=== PATIENT | male | born 1955 | race African-American/Black ===

== ENCOUNTER 2017-12-14 09:38 | Inpatient (IN) | payer BC ==
[2017-12-14] VITALS (7 sets, daily range): BP systolic 131–167; BP diastolic 85–98; PULSE 79–138; RESP 17–21; TEMP 98.5–98.6; O2SAT 98–100
[~2017-12-14] VITALS: Ht 172.7 cm; Wt 90.9 kg
[~2017-12-14 09:38] MED LIST: MEVA40TA PO; TAMS0.4C67 PO
[2017-12-14] MEDS ORDERED: SODIUM CHLORIDE 0.9% FLUSH 10 ML FLUSH IVF PRN (09:45)
[2017-12-14] MEDS ORDERED: LOVA40TA PO (09:58)
[2017-12-14] MEDS ORDERED: TAMS0.4C4 (09:58)
[2017-12-14] MEDS: METOPROLOL TARTRATE 5 MG/5 ML VIAL IV PUSH SCH ×3 (10:05→10:19)
[2017-12-14 10:19] LABS: AUTOMATED NEUTROPHIL # 3.7 TH/MM3 (1.8-7.7); BASOPHIL % 0.2 % (0.0-2.0); EOSINOPHIL # 0.1 TH/MM3 (0-0.4); EOSINOPHIL % 1.5 % (0.0-4.0); HEMATOCRIT 42.9 % (39.0-51.0); LYMPH % 28.2 % (9.0-44.0); LYMPHOCYTE # 1.6 TH/MM3 (1.0-4.8); MEAN CELL VOLUME 84.8 FL (80.0-100.0); MEAN CORPUSCULAR HEMOGLOBIN 27.6 PG (27.0-34.0); MEAN CORPUSCULAR HGB CONC 32.6 % (32.0-36.0); MONO % 6.7 % (0.0-8.0); MONOCYTE # 0.4 TH/MM3 (0-0.9); NEUT % 63.4 % (16.0-70.0); PLATELET COUNT 186 TH/MM3 (150-450); RED BLOOD COUNT 5.05 MIL/MM3 (4.50-5.90); RED CELL DISTRIBUTION WIDTH 14.3 % (11.6-17.2); WHITE BLOOD COUNT 5.8 TH/MM3 (4.0-11.0)
[2017-12-14 10:26] LABS: PROTHROMBIN TIME - PATIENT 10.5 SEC (9.8-11.6)
[2017-12-14 10:41] LABS: BLOOD UREA NITROGEN 18 MG/DL (7-18); CALCIUM 8.9 MG/DL (8.5-10.1); CHLORIDE 109 MEQ/L (98-107); CREATININE 1.22 MG/DL (0.60-1.30); GLOMERULAR FILTRATION RATE 73 ML/MIN (>89); GLUCOSE,RANDOM 82 MG/DL (74-106); MAGNESIUM 2.2 MG/DL (1.5-2.5); SODIUM (NA) 144 MEQ/L (136-145)
[2017-12-14 10:45] LABS: TROPONIN I LESS THAN 0.02 NG/ML (0.02-0.05)
--- NOTE | 2017-12-14 10:45 | RADRPT ---
EXAM DATE/TIME: 12/14/2017 10:09 [place] COMPARISON: CHEST SINGLE AP, May 31, 2012, 13:46. INDICATIONS : Tachycardia. Dizziness. MEDICAL HISTORY : None. SURGICAL HISTORY : None. ENCOUNTER: Initial ACUITY: 1 day PAIN SCORE: 0/10 LOCATION: Bilateral chest FINDINGS: A single view of the chest demonstrates the lungs to be symmetrically aerated without evidence of mas s, infiltrate or effusion. The cardiomediastinal contours are unremarkable. Osseous structures are intact. CONCLUSION: No acute disease. Rob Figueroa MD on December 14, 2017 at 10:43 Board Certified Radiologist. This report was verified electronically.
--- NOTE | 2017-12-14 11:34 | PD ---
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 He was evaluated on scene and found to have a heart rate in the 200s. EMS reports SVT and gave the patient adenosine 6 mg with reduction in heart rate followed by a second 12 mg dose. The patient's heart rate again decreased temporarily and was found to be A. fib RVR. He received 20 mg diltiazem. Upon arrival to the ER the rhythm again was observed to be in atrial fibrillation with a rate between 140 and 160. Blood pressure remained about 140/100. The patient reports 4 years ago having one episode of A. fib. Nuclear medicine stress test was performed which was normal. He denies any change in his baseline health recently. No chest pain. PFSH Past Medical History Atrial Fibrillation: Yes High Cholesterol: Yes Diabetes: Yes (BORDERLINE- NO MEDS) Patient Takes Glucophage: No Diminished Hearing: No Past Surgical History Eye Surgery: Yes (LEFT CATARACT REMOVED) Genitourinary Surgery: Yes (CYSTOSCOPY) Other Surgery: Yes (COLONOSCOPY-ALL CLEAN) Social History Alcohol Use: Yes (OCCASSIONAL) Tobacco Use: No Substance Use: No Allergies-Medications (Allergen,Severity, Reaction): Coded Allergies: shellfish derived (Unverified Allergy, Severe, ANAPHYLAXIS, 12/14/17) Reported Meds & Prescriptions Reported Meds & Active Scripts Active Reported Tamsulosin (Tamsulosin HCl) 0.4 Mg Cap 0.4 Mg HS Lovastatin 40 Mg Tab 40 Mg PO DAILY Review of Systems Except as stated in HPI: all other systems reviewed are Neg General / Constitutional: No: Fever Physical Exam Narrative GENERAL: 62 male well-nourished well-developed pleasant Vital Signs Date Time Temp Pulse Resp B/P (MAP) Pulse Ox O2 Delivery O2 Flow Rate FiO2 12/14/17 10:25 79 21 138/85 (102) 100 Room Air 12/14/17 09:55 98.6 138 20 131/87 (102) 99 SKIN: Warm and dry. HEAD: Atraumatic. Normocephalic. EYES: Pupils equal and round. No scleral icterus. No injection or drainage. ENT: No nasal bleeding or discharge. Mucous membranes pink and moist. NECK: Trachea midline. No JVD. CARDIOVASCULAR: Irregular. Tachycardia. RESPIRATORY: No accessory muscle use. Clear to auscultation. Breath sounds equal bilaterally. GASTROINTESTINAL: Abdomen soft, non-tender, nondistended. Hepatic and splenic margins not palpable. MUSCULOSKELETAL: Extremities without clubbing, cyanosis, or edema. No obvious deformities. NEUROLOGICAL: Awake and alert. No obvious cranial nerve deficits. Motor grossly within normal limits. Five out of 5 muscle strength in the arms and legs. Normal speech. PSYCHIATRIC: Appropriate mood and affect; insight and judgment normal. Data Data Last Documented VS Vital Signs Date Time Temp Pulse Resp B/P (MAP) Pulse Ox O2 Delivery O2 Flow Rate FiO2 12/14/17 10:25 79 21 138/85 (102) 100 Room Air 12/14/17 09:55 98.6 Orders Orders Electrocardiogram (12/14/17 09:45) Basic Metabolic Panel (Bmp) (12/14/17 09:45) Ckmb (Isoenzyme) Profile (12/14/17 09:45) Complete Blood Count With Diff (12/14/17 09:45) Magnesium (Mg) (12/14/17 09:45) Prothrombin Time / Inr (Pt) (12/14/17 09:45) Act Partial Throm Time (Ptt) (12/14/17 09:45) Troponin I (12/14/17 09:45) Chest, Single Ap (12/14/17 09:45) Ecg Monitoring (12/14/17 09:45) Iv Access Insert/Monitor (12/14/17 09:45) Oximetry (12/14/17 09:45) Oxygen Administration (12/14/17 09:45) Sodium Chloride 0.9% Flush (Ns Flush) (12/14/17 09:45) Metoprolol Tartrate Inj (Lopressor Inj) (12/14/17 10:00) CKMB (12/14/17 10:01) CKMB% (12/14/17 10:01) Electrocardiogram (12/14/17 ) Potassium Chloride (Kcl) (12/14/17 13:45) Admit Order (Ed Use Only) (12/14/17 ) Motor Carrier Inspector / Telemetry NIKOS.Q8H (12/14/17 13:35) Vital Signs (Adult) Q4H (12/14/17 13:35) Diet Heart Healthy (12/14/17 Lunch) Activity Bed Rest (12/14/17 13:35) Potassium Chloride (Kcl) (12/14/17 13:45) Labs Laboratory Tests Test 12/14/17 10:01 White Blood Count 5.8 TH/MM3 Red Blood Count 5.05 MIL/MM3 Hemoglobin 14.0 GM/DL Hematocrit 42.9 % Mean Corpuscular Volume 84.8 FL Mean Corpuscular Hemoglobin 27.6 PG Mean Corpuscular Hemoglobin Concent 32.6 % Red Cell Distribution Width 14.3 % Platelet Count 186 TH/MM3 Mean Platelet Volume 9.0 FL Neutrophils (%) (Auto) 63.4 % Lymphocytes (%) (Auto) 28.2 % Monocytes (%) (Auto) 6.7 % Eosinophils (%) (Auto) 1.5 % Basophils (%) (Auto) 0.2 % Neutrophils # (Auto) 3.7 TH/MM3 Lymphocytes # (Auto) 1.6 TH/MM3 Monocytes # (Auto) 0.4 TH/MM3 Eosinophils # (Auto) 0.1 TH/MM3 Basophils # (Auto) 0.0 TH/MM3 CBC Comment DIFF FINAL Differential Comment Prothrombin Time 10.5 SEC Prothromb Time International Ratio 1.0 RATIO Activated Partial Thromboplast Time 28.2 SEC Blood Urea Nitrogen 18 MG/DL Creatinine 1.22 MG/DL Random Glucose 82 MG/DL Calcium Level 8.9 MG/DL Magnesium Level 2.2 MG/DL Sodium Level 144 MEQ/L Potassium Level 3.3 MEQ/L Chloride Level 109 MEQ/L Carbon Dioxide Level 21.0 MEQ/L Anion Gap 14 MEQ/L Estimat Glomerular Filtration Rate 73 ML/MIN Total Creatine Kinase 684 U/L Creatine Kinase MB 7.4 NG/ML Creatine Kinase MB % 1.1 % Troponin I LESS THAN 0.02 NG/ML MDM Medical Decision Making Medical Screen Exam Complete: Yes Emergency Medical Condition: Yes Medical Record Reviewed: Yes Differential Diagnosis NSTEMI, unstable angina, coronary vasospasm, PE, PTX, aortic dissection, pericarditis, myocarditis, endocarditis, PNA, esophageal disease, aneurysm, musculoskeletal etiologies, anxiety, cocaine/sympathomimetic abuse Narrative Course CBC & BMP Diagram 12/14/17 10:01 Calcium Level 8.9, Magnesium Level 2.2 Troponin less than 0.02 EKG: Narrow complex irregular tachycardia with a rate of 150 atrial flutter with a rate of 150 Patient received 5 mg IV metoprolol here. The heart rate has remained about 90 seconds. Patient will be kept for monitoring and further evaluation in the setting of for antiarrhythmic medication administrations. d/w Dr Ndiaye. 40mEq potassium given here. Diagnosis Primary Impression: Atrial fibrillation with RVR Additional Impression: Hypokalemia Admitting Information Admitting Physician Requests: Admit Austen Musa MD Dec 14, 2017 11:34
[2017-12-14] MEDS ORDERED: SODIUM CHLORIDE 0.9% FLUSH 10 ML FLUSH IV FLUSH PRN (13:45)
[2017-12-14] MEDS ORDERED: POTASSIUM CHLORIDE 20 MEQ CONTROLLED RELEASE TAB PO ONE ×2 (13:45)
[2017-12-14] MEDS ORDERED: NALOXONE HCL 0.4 MG/ML AMP IV PUSH PRN (13:45)
--- NOTE | 2017-12-14 13:47 | HHI.HP ---
[facility] Service [facility] ([place], [place])ists Primary Care Physician Cruz Anderson MD Admission Diagnosis AFib RVR; HypoK Diagnoses: Travel History International Travel<30 Days: No Contact w/Intl Traveler <30 Da: No Traveled to Known Affected Are: No History of Present Illness Mr. Sal is a 62-year-old male. He has a prior history of A. fib RVR which spontaneously resolved. 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 This is the same place at his previous episode occurred. He denies any herbal supplements. He denies any stimulants such as [id number] cough medicines or allergy/ sinus treatments. She denies high amounts of coffee. He said he about half a cup of coffee this morning which is not outside of his typical ingestion. He does not drink alcohol heavily, only occasionally. He had about 2 drinks of alcohol the previous day. No complaints of chest pain. No shortness of breath. Adenosine and IV diltiazem failed. After IV metoprolol was given in the ER patient is in normal sinus rhythm. She has remained in sinus rhythm since receiving metoprolol. Mild hypokalemia present and probably not contributory at 3.3. Review of Systems Constitutional: COMPLAINS OF: Dizziness, DENIES: Fatigue, Fever, Night Sweats Eyes: DENIES: Blurred vision, Diplopia, Eye inflammation, Eye pain Ears, nose, mouth, throat: DENIES: Hearing loss, Vertigo, Nasal discharge Respiratory: DENIES: Cough, Wheezing, Shortness of breath Cardiovascular: COMPLAINS OF: Palpitations, Syncope, DENIES: Chest pain Gastrointestinal: DENIES: Abdominal pain, Black stools, Bloody stools Musculoskeletal: DENIES: Joint pain, Muscle aches, Stiffness, Joint Swelling Integumentary: DENIES: Abnormal pigmentation, Nail changes, Pruritus, Rash Hematologic/lymphatic: DENIES: Bruising, Lymphadenopathy Immunologic/allergic: DENIES: Eczema, Urticaria Neurologic: DENIES: Abnormal gait, Headache, Paresthesias Psychiatric: DENIES: Anxiety, Confusion, Hallucinations Past Family Social History Past Medical History Past history of atrial fibrillation Hyperlipidemia Diet-controlled diabetes Benign prostatic hypertrophy Past Surgical History Left cataract surgery Cystoscopy Colonoscopy Reported Medications Reported Meds & Active Scripts Active Reported Tamsulosin (Tamsulosin HCl) 0.4 Mg Cap 0.4 Mg HS Lovastatin 40 Mg Tab 40 Mg PO DAILY Allergies: Coded Allergies: shellfish derived (Unverified Allergy, Severe, ANAPHYLAXIS, 12/14/17) Active Ordered Medications Administered Medications Medications (Trade) Dose Ordered Sig/Linden Route PRN Reason Start Time Stop Time Status Last Admin Dose Admin Metoprolol Tartrate (Lopressor Inj) 5 mg Q5M IV PUSH 12/14/17 10:00 12/14/17 10:19 Family History Prostate cancer and hypertension in patient's father Hypertension in patient's mother Social History Occasional alcohol use No nicotine use No illicit drug abuse Physical Exam Vital Signs Vital Signs Date Time Temp Pulse Resp B/P (MAP) Pulse Ox O2 Delivery O2 Flow Rate FiO2 12/14/17 10:25 79 21 138/85 (102) 100 Room Air 12/14/17 09:55 98.6 138 20 131/87 (102) 99 Physical Exam GENERAL: NAD, A&Ox3 HEAD: Normocephalic. NECK: Supple, trachea midline. No lymphadenopathy. EYES: No scleral icterus. No injection or drainage. CARDIOVASCULAR: Regular rate and rhythm without murmurs, gallops, or rubs. RESPIRATORY: Breath sounds equal bilaterally. No accessory muscle use. GASTROINTESTINAL: Abdomen soft, non-tender, nondistended. MUSCULOSKELETAL: No cyanosis, or edema. SKIN: Warm and dry. NEURO: No focal neurological deficitis. Laboratory Laboratory Tests Test 12/14/17 10:01 White Blood Count 5.8 Red Blood Count 5.05 Hemoglobin 14.0 Hematocrit 42.9 Mean Corpuscular Volume 84.8 Mean Corpuscular Hemoglobin 27.6 Mean Corpuscular Hemoglobin Concent 32.6 Red Cell Distribution Width 14.3 Platelet Count 186 Mean Platelet Volume 9.0 Neutrophils (%) (Auto) 63.4 Lymphocytes (%) (Auto) 28.2 Monocytes (%) (Auto) 6.7 Eosinophils (%) (Auto) 1.5 Basophils (%) (Auto) 0.2 Neutrophils # (Auto) 3.7 Lymphocytes # (Auto) 1.6 Monocytes # (Auto) 0.4 Eosinophils # (Auto) 0.1 Basophils # (Auto) 0.0 CBC Comment DIFF FINAL Differential Comment Prothrombin Time 10.5 Prothromb Time International Ratio 1.0 Activated Partial Thromboplast Time 28.2 Blood Urea Nitrogen 18 Creatinine 1.22 Random Glucose 82 Calcium Level 8.9 Magnesium Level 2.2 Sodium Level 144 Potassium Level 3.3 Chloride Level 109 Carbon Dioxide Level 21.0 Anion Gap 14 Estimat Glomerular Filtration Rate 73 Total Creatine Kinase 684 Creatine Kinase MB 7.4 Creatine Kinase MB % 1.1 Troponin I LESS THAN 0.02 Result Diagram: 12/14/17 1001 12/14/17 1001 Imaging Last Impressions Chest X-Ray 12/14/17 0920 Signed Impressions: Service Date/Time: Thursday, December 14, 2017 10:09 - CONCLUSION: No acute disease. MD Lefty Pedro VTE Risk Assessment Lefty VTE Risk Assessment: No/Low Risk (score <= 1) Lefty Risk Assessment Model Point Value = 1 Point Value = 2 Point Value = 3 Point Value = 5 Age 41-60 Minor surgery BMI > 25 kg/m2 Swollen legs Varicose veins or History of unexplained or recurrent spontaneous Oral contraceptives or hormone replacement Sepsis (< 1 month) Serious lung disease, including pneumonia (< 1 month) Abnormal pulmonary function Acute myocardial infarction Congestive heart failure (< 1 month) History of inflammatory bowel disease Medical patient at bed rest Age 61-74 Arthroscopic surgery Major open surgery (> 45 min) Laparoscopic surgery (> 45 min) Malignancy Confined to bed (> 72 hours) Immobilizing plaster cast Central venous access Age >= 75 History of VTE Family history of VTE Factor V Leiden Prothrombin [id number] Lupus anticoagulant Anticardiolipin antibodies Elevated serum homocysteine Heparin-induced thrombocytopenia Other congenital or acquired thrombophilia Stroke (< 1 month) Elective arthroplasty Hip, pelvis, or leg fracture Acute spinal cord injury (< 1 month) Prophylaxis Regimen Total Risk Factor Score Risk Level Prophylaxis Regimen 0-1 Low Early ambulation 2 Moderate Order ONE of the following: *Sequential Compression Device (SCD) *Heparin 5000 units SQ BID 3-4 Higher Order ONE of the following medications: *Heparin 5000 units SQ TID *Enoxaparin/Lovenox 40 mg SQ daily (WT < 150 kg, CrCl > 30 mL/min) *Enoxaparin/Lovenox 30 mg SQ daily (WT < 150 kg, CrCl > 10-29 mL/min) *Enoxaparin/Lovenox 30 mg SQ BID (WT < 150 kg, CrCl > 30 mL/min) AND/OR *Sequential Compression Device (SCD) 5 or more Highest Order ONE of the following medications: *Heparin 5000 units SQ TID (Preferred with Epidurals) *Enoxaparin/Lovenox 40 mg SQ daily (WT < 150 kg, CrCl > 30 mL/min) *Enoxaparin/Lovenox 30 mg SQ daily (WT < 150 kg, CrCl > 10-29 mL/min) *Enoxaparin/Lovenox 30 mg SQ BID (WT < 150 kg, CrCl > 30 mL/min) AND *Sequential Compression Device (SCD) Assessment and Plan Problem List: (1) Atrial fibrillation with RVR ICD Code: I48.91 - Unspecified atrial fibrillation Status: Acute (2) Hypokalemia ICD Code: E87.6 - Hypokalemia Status: Acute Assessment and Plan 62-year-old male admitted secondary to new onset A. fib RVR with presyncope. Acute A. fib RVR Presyncope Past history of transient atrial fibrillation with RVR Metoprolol IV as needed Cardiology consulted Evaluate for ACS Follow cardiac enzymes Follow on telemetry Cardiology consult Hyperlipidemia Continue present treatment Follow as an outpatient Diabetes mellitus type 2 Follow blood sugars Insulin sliding scale Diabetic diet Benign prostatic hypertrophy Continue baseline treatment DVT prophylaxis Lovenox Physician Certification 2 Midnight Certification Type: Admission for Inpatient Services Order for Inpatient Services The services are ordered in accordance with Medicare regulations or non- Medicare payer requirements, as applicable. In the case of services not specified as inpatient-only, they are appropriately provided as inpatient services in accordance with the 2-midnight benchmark. Estimated LOS (days): 2 days is the estimated time the patient will need to remain in the hospital, assuming treatment plan goals are met and no additional complications. Post-Hospital Plan: Home Austen Ndiaye MD Dec 14, 2017 13:47
[2017-12-14] MEDS ORDERED: MAGNESIUM HYDROXIDE SUSP 30 ML CUP PO PRN (14:00)
[2017-12-14] MEDS ORDERED: ONDANSETRON HCL 4 MG/2 ML VIAL IVP PRN (14:00)
[2017-12-14] MEDS ORDERED: MORPHINE SULFATE 2 MG/ML SYRINGE IV PUSH PRN ×2 (14:00→15:00)
[2017-12-14] MEDS ORDERED: METOPROLOL TARTRATE 5 MG/5 ML VIAL IV PUSH PRN (14:30)
[2017-12-14] MEDS ORDERED: ENOXAPARIN SODIUM 40 MG/0.4 ML SYRINGE SQ SCH (15:00)
[2017-12-14 19:06] LABS: TROPONIN I 0.02 NG/ML (0.02-0.05)
--- NOTE | 2017-12-14 20:28 | HHI.PR ---
Subjective Remarks not seen Objective Vitals Vital Signs Date Time Temp Pulse Resp B/P (MAP) Pulse Ox O2 Delivery O2 Flow Rate FiO2 12/14/17 14:00 88 19 165/95 (118) 99 Room Air 12/14/17 13:00 90 18 167/98 (121) 100 Room Air 12/14/17 12:00 90 17 152/88 (109) 98 Room Air 12/14/17 11:00 84 18 140/85 (103) 99 Room Air 12/14/17 10:25 79 21 138/85 (102) 100 Room Air 12/14/17 09:55 98.6 138 20 131/87 (102) 99 Result Diagram: 12/14/17 1001 12/14/17 1001 Imaging Last Impressions Chest X-Ray 12/14/17 0945 Signed Impressions: Service Date/Time: Thursday, December 14, 2017 10:09 - CONCLUSION: No acute disease. Rob Figueroa MD Objective Remarks GENERAL: NAD, A&Ox3 HEAD: Normocephalic. NECK: Supple, trachea midline. No lymphadenopathy. EYES: No scleral icterus. No injection or drainage. CARDIOVASCULAR: Regular rate and rhythm without murmurs, gallops, or rubs. RESPIRATORY: Breath sounds equal bilaterally. No accessory muscle use. GASTROINTESTINAL: Abdomen soft, non-tender, nondistended. MUSCULOSKELETAL: No cyanosis, or edema. SKIN: Warm and dry. NEURO: No focal neurological deficitis. Procedures none A/P Problem List: (1) Atrial fibrillation with RVR ICD Code: I48.91 - Unspecified atrial fibrillation Status: Acute (2) Hypokalemia ICD Code: E87.6 - Hypokalemia Status: Acute Assessment and Plan 62-year-old male admitted secondary to new onset A. fib RVR with presyncope. Acute A. fib RVR Presyncope Past history of transient atrial fibrillation with RVR Metoprolol IV as needed Cardiology consulted Evaluate for ACS Follow cardiac enzymes Follow on telemetry Cardiology consult Hyperlipidemia Continue present treatment Follow as an outpatient Diabetes mellitus type 2 Follow blood sugars Insulin sliding scale Diabetic diet Benign prostatic hypertrophy Continue baseline treatment DVT prophylaxis Ajx Robert Hanks MD Dec 14, 2017 20:28
--- NOTE | 2017-12-14 20:37 | HHI.DCPOC ---
Discharge Care Plan Diagnosis: (1) Atrial fibrillation with RVR (2) Hypokalemia Your Health Problems Are: Difficulty with ADL Exercise Tolerance Goals to Promote Your Health * To prevent worsening of your condition and complications * To maintain your health at the optimal level Directions to Meet Your Goals Take your medications as prescribed Follow your dietary instruction Follow activity as directed Keep your appointments as scheduled Take your immunizations and boosters as scheduled If your symptoms worsen call your PCP, if no PCP go to Urgent Care Center or Emergency Room Smoking is Dangerous to Your Health. Avoid second hand smoke Call the 24-hour hour crisis hotline for domestic abuse at Robert Hanks MD Dec 14, 2017 20:37
--- NOTE | 2017-12-14 20:51 | EKG ---
Date Performed: 12/14/2017 Time Performed: 11:44:16 PTAGE: 62 years EKG: Sinus rhythm NORMAL ECG NO PREVIOUS TRACING DOCTOR: Gavin Funes Interpretating Date/Time 12/14/2017 20:50:36
--- NOTE | 2017-12-14 20:55 | EKG ---
Date Performed: 12/14/2017 Time Performed: 09:51:06 PTAGE: 62 years EKG: ATRIAL FLUTTER/TACHYCARDIA WITH RAPID VENTRICULAR RESPONSE NONSPECIFIC ST ABNORMALITIES ABN ORMAL ECG PREVIOUS TRACING : 05/31/2012 12.50 Compared to previous tracing, atrial flutter has replaced S inus rhythm . DOCTOR: Gavin Funes Interpretating Date/Time 12/14/2017 20:54:47
[2017-12-14] MEDS ORDERED: TAMSULOSIN HCL 0.4 MG CAP PO SCH (21:00)
[2017-12-14] MEDS: SODIUM CHLORIDE 0.9% FLUSH 10 ML FLUSH IV FLUSH SCH (21:14)
[2017-12-14 23:40] LABS: TROPONIN I LESS THAN 0.02 NG/ML (0.02-0.05)
[2017-12-15] VITALS: BP_SYST 121; BP_SYST 165; BP_DIAS 74; BP_DIAS 94; PULSE 78; RESP 18; TEMP 98.2; O2SAT 100; O2SAT 96
[2017-12-15 04:00] VITALS: BP 158/82; PULSE 89; PULSE 94; RESP 17; TEMP 97.8; O2SAT 100
[2017-12-15 06:33] LABS: AUTOMATED NEUTROPHIL # 2.4 TH/MM3 (1.8-7.7); BASOPHIL % 0.3 % (0.0-2.0); EOSINOPHIL # 0.1 TH/MM3 (0-0.4); EOSINOPHIL % 2.7 % (0.0-4.0); HEMATOCRIT 40.5 % (39.0-51.0); HEMOGLOBIN 13.4 GM/DL (13.0-17.0); LYMPH % 37.3 % (9.0-44.0); LYMPHOCYTE # 1.9 TH/MM3 (1.0-4.8); MEAN CELL VOLUME 84.9 FL (80.0-100.0); MEAN CORPUSCULAR HGB CONC 33.1 % (32.0-36.0); MEAN PLATELET VOLUME 9.2 FL (7.0-11.0); MONO % 11.7 % (0.0-8.0); MONOCYTE # 0.6 TH/MM3 (0-0.9); PLATELET COUNT 175 TH/MM3 (150-450); RED BLOOD COUNT 4.77 MIL/MM3 (4.50-5.90); RED CELL DISTRIBUTION WIDTH 13.9 % (11.6-17.2); WHITE BLOOD COUNT 5.1 TH/MM3 (4.0-11.0)
[2017-12-15 06:46] LABS: ALBUMIN 3.8 GM/DL (3.4-5.0); BICARBONATE 24.7 MEQ/L (21.0-32.0); BLOOD UREA NITROGEN 23 MG/DL (7-18); CALCIUM 8.5 MG/DL (8.5-10.1); CHLORIDE 105 MEQ/L (98-107); CREATININE 1.04 MG/DL (0.60-1.30); GLOMERULAR FILTRATION RATE 87 ML/MIN (>89); GLUCOSE,RANDOM 102 MG/DL (74-106); SODIUM (NA) 140 MEQ/L (136-145)
[2017-12-15 06:47] LABS: ALT (GPT) 28 U/L (12-78); AST (GOT) 24 U/L (15-37)
[2017-12-15 06:49] LABS: ALKALINE PHOSPHATASE 56 U/L (45-117); TOTAL BILIRUBIN ADULT 1.4 MG/DL (0.2-1.0); TOTAL PROTEIN 7.2 GM/DL (6.4-8.2)
[2017-12-15] MEDS: SODIUM CHLORIDE 0.9% FLUSH 10 ML FLUSH IV FLUSH SCH (07:27)
[2017-12-15 08:00] VITALS: BP_SYST 167; BP_SYST 168; BP_DIAS 88; BP_DIAS 93; PULSE 85; RESP 16; TEMP 98.2; O2SAT 100
[2017-12-15] MEDS ORDERED: PRAVASTATIN SOD 40 MG TAB PO SCH (09:00)
[2017-12-15] MEDS ORDERED: PNEUMOCOCCAL POLYVALENT INJ 25 MCG/0.5 ML SYR IM ONE (10:00)
--- NOTE | 2017-12-15 11:40 | HHI.PR ---
Subjective Remarks Follow-up Clary Brown No complaints dw cards ok for dc pending echo dw RN Objective Vitals Vital Signs Date Time Temp Pulse Resp B/P (MAP) Pulse Ox O2 Delivery O2 Flow Rate FiO2 12/15/17 11:06 21 12/15/17 08:00 98.2 85 16 168/93 (118) 100 167/88 (114) 12/15/17 04:00 97.8 94 17 158/82 (107) 100 12/15/17 04:00 Room Air 12/15/17 04:00 89 12/15/17 00:00 98.2 78 18 165/94 (117) 100 12/15/17 00:00 78 12/15/17 00:00 Room Air 12/14/17 21:00 Room Air 12/14/17 20:00 82 12/14/17 20:00 98.5 83 18 148/89 (108) 99 12/14/17 14:00 88 19 165/95 (118) 99 Room Air 12/14/17 13:00 90 18 167/98 (121) 100 Room Air 12/14/17 12:00 90 17 152/88 (109) 98 Room Air I/O 12/14/17 12/14/17 12/14/17 12/15/17 12/15/17 12/15/17 07:00 15:00 23:00 07:00 15:00 23:00 Intake Total 400 ml Balance 400 ml Intake Oral 400 ml # Voids 4 # Bowel Movements 0 Result Diagram: 12/15/17 0340 12/15/17 0340 Imaging Last Impressions Chest X-Ray 12/14/17 0945 Signed Impressions: Service Date/Time: Thursday, December 14, 2017 10:09 - CONCLUSION: No acute disease. Rob Figueroa MD Objective Remarks GENERAL: NAD, A&Ox3 HEAD: Normocephalic. NECK: Supple, trachea midline. No lymphadenopathy. EYES: No scleral icterus. No injection or drainage. CARDIOVASCULAR: Regular rate and rhythm without murmurs, gallops, or rubs. RESPIRATORY: Breath sounds equal bilaterally. No accessory muscle use. GASTROINTESTINAL: Abdomen soft, non-tender, nondistended. MUSCULOSKELETAL: No cyanosis, or edema. SKIN: Warm and dry. NEURO: No focal neurological deficits. Procedures none A/P Problem List: (1) Atrial fibrillation with RVR ICD Code: I48.91 - Unspecified atrial fibrillation Status: Acute (2) Hypokalemia ICD Code: E87.6 - Hypokalemia Status: Acute Assessment and Plan 62-year-old male admitted secondary to new onset A. fib RVR with presyncope. Acute A. fib RVR. Resolved low chads score start aspirin Presyncope secondary to above. Nonfocal Past history of transient atrial fibrillation with RVR Elevated BP. Patient will be started on Lopressor Hyperlipidemia. Stable continue the Pravachol. Diabetes mellitus type 2, diet controlled. Follow blood sugars, Insulin sliding scale. Diabetic diet Benign prostatic hypertrophy. Stable DVT prophylaxis. Lovenox Discharge Planning Discharge patient to home Condition on discharge: Improved Regular Diet as tolerated Ad Naomi activity no driving Rx written: Aspirin and Lopressor Follow-up with primary care physician and cardiology Robert Hanks MD Dec 15, 2017 11:40
[2017-12-15] MEDS ORDERED: ECASA81 PO (11:44)
[2017-12-15] MEDS ORDERED: ASPIRIN EC 81 MG TABEC PO SCH (11:45)
[2017-12-15] MEDS ORDERED: METOPROLOL TARTRATE 25 MG TAB PO SCH ×2 (11:45→21:00)
[2017-12-15] MEDS ORDERED: METO25TA3 PO (11:53)
[2017-12-15 12:00] VITALS: BP 148/79; PULSE 88; RESP 16; TEMP 98.4; O2SAT 100
[2017-12-15] MEDS ORDERED: PILL SPLITTER OTHER PRN (12:00)
--- NOTE | 2017-12-15 12:02 | MB ---
cc: Stephane Musa DO DATE: 12/15/2017 REASON FOR CONSULTATION: Atrial fibrillation with rapid ventricular response. HISTORY OF PRESENT ILLNESS: Eusebio Sal is a pleasant 62-year-old male who presented to [facility] on 12/14/2014 due to tachycardia with a presyncopal episode. 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 He was in between procedures and felt a little off and so he said he had to use the restroom. As he came back from the restroom, he was feeling dizzy and had somewhat of a headache and overall lightheadedness. He was hooked up to a monitor and found to be in atrial fibrillation with rapid ventricular response and so he was sent to the emergency room. Since that time, he has converted back to normal sinus rhythm. In seeing him this morning, he denies chest pain, shortness of breath, or lightheadedness. He had a previous episode 6 years ago with a similar type presentation of being at work, drinking his usual amount of coffee and then going into the atrial fibrillation with rapid ventricular response. Since that time, he had seen Dr. Win a few times in the outpatient setting and underwent a standard workup. He was instructed to be on aspirin 81 mg daily for anticoagulation. He was never placed on AV jazzy blocking agents. PAST MEDICAL HISTORY: 1. Atrial fibrillation with rapid ventricular response, CHADS-VASc score of 1 (difficult to determine as the patient is mildly hypertensive here, although he states the blood pressure while in his primary care physician's office, who he sees regularly, has been normal. He also previously had an elevated hemoglobin A1c of 6.8, but per the patient, when seeing his primary care physician, his blood sugars and hemoglobin A1c have been within normal range and he was not told that he was felt to be diabetic). 2. Hypertension. 3. Diet-controlled diabetes. 4. Benign prostatic hypertrophy. PAST SURGICAL HISTORY: 1. Left cataract surgery. 2. Cystoscopy. 3. Colonoscopy. ALLERGIES: SHELLFISH. MEDICATIONS: 1. Flomax 0.4 mg every night. 2. Lovastatin 40 mg daily. FAMILY HISTORY: Prostate cancer and hypertension in his father's history, as well as hypertension in his mother's history. SOCIAL HISTORY: Occasionally drinks alcohol. Denies tobacco or drug abuse. REVIEW OF SYSTEMS: Fourteen systems were reviewed including osteopathic pertinent positives and negatives as above, otherwise negative. PHYSICAL EXAMINATION: VITAL SIGNS: Temperature 97.8, heart rate 89, blood pressure 158/82, respirations 17, pulse oximetry 100% on room air. GENERAL: The patient appears well in no acute distress, alert, awake and oriented x 3. HEENT: Extraocular muscles intact. Mucous membranes moist. NECK: Supple. No JVD at 45 degrees. There are carotid bruits heard bilaterally. Carotid upstroke is brisk in nature. HEART: Regular rate and rhythm. Positive first and second heart sounds with no murmurs, gallops or rubs. LUNGS: Clear to auscultation bilaterally. No wheezes, rales or rhonchi. ABDOMEN: Soft, nontender, nondistended. No organomegaly noted. EXTREMITIES: Show no clubbing, cyanosis or edema. Femoral distal pulses intact bilaterally. NEUROLOGIC: No focal deficits. SKIN: Warm, dry and intact. OSTEOPATHICALLY: No kyphoscoliosis, lordosis or paraspinal tender points. LABORATORY DATA: Hemoglobin 13.4, hematocrit 40.5, platelets 175. Potassium 3.3, BUN 23, creatinine 1.04. Troponin negative x 3. TSH 2.21. Electrocardiogram (12/14/2017 at 0951) atrial fibrillation versus atrial flutter with rapid ventricular response, nonspecific ST-T wave changes. Electrocardiogram (12/14/2017 at 1144) sinus rhythm with no acute ST-T wave changes. IMPRESSIONS: 1. Atrial fibrillation with rapid ventricular response, CHADS-VASc score of 1-2 (no current history of hypertension or diabetes, although he has been hypertensive here). As before, he had a hemoglobin A1c of 6.8, but states that he has been told that his blood sugars and hemoglobin A1c in the primary care office have been good off medications. 2. Atrial fibrillation with rapid ventricular response felt to be a CHADS-VASc score of 1. 3. Presyncopal secondary to atrial fibrillation with rapid ventricular response. 4. Hyperlipidemia. 5. Possible diabetes mellitus, although per the patient's blood sugars and hemoglobin A1c have been relatively normal in the office. 6. Benign prostatic hypertrophy. RECOMMENDATIONS: 1. Mr. Sal presented with atrial fibrillation with rapid ventricular response and apparently was given metoprolol tartrate IV in the ambulance, which has since converted him. He continues in normal sinus rhythm. 2. We will plan on placing him on metoprolol tartrate 25 mg b.i.d. for further heart rate control. 3. As far as his CHADS-VASc score, this is difficult as his blood pressure is somewhat elevated while here, although he states that his blood pressure is always in control while in his doctor's office. He also had a hemoglobin A1c of 6.8 previously, but states that since then his blood sugars and hemoglobin A1c have been controlled and he was told that he is not diabetic. 4. I did discuss with him anticoagulation and I would consider him a CHADS-VASc score of probably one at this time and will place him on aspirin 81 mg daily. He should followup in the outpatient office and hemoglobin A1c should be done if not recent and if elevated, he should be considered for anticoagulation with NOAC. 5. He previously has seen Dr. Win, although it has been 2-3 years ago, and he may followup with him in the next few weeks after discharge. 6. We will check a 2-D echo and if no complications or problems with it, he will be discharged home today. Thank you for allowing me to see Eusebio Sal. If there are any questions, please do not hesitate to call. Stephane Musa, DO VGP/DL , 11:27 AM , 12:00 PM
[2017-12-15] MEDS ORDERED: POTASSIUM CHLORIDE 20 MEQ CONTROLLED RELEASE TAB PO ONE (13:45)
[2017-12-15] MEDS ORDERED: POTASSIUM CHLORIDE 10 MEQ CONTROLLED RELEASE TAB PO ONE (13:45)
--- NOTE | 2017-12-15 14:02 | ECHRPT ---
Indication: Persistent atrial fibrillation CONCLUSIONS The left ventricular systolic function is normal with an estimated ejection fraction in the range of 55-60%. There is trace tricuspid valve regurgitation. BP: / HR: Rhythm: Sinus MEASUREMENTS (Male / Female) Normal Values Technical Quality:Fair 2D ECHO LV Diastolic Diameter PLAX 3.9 cm 4.2 - 5.9 / 3.9 - 5.3 cm LV Systolic Diameter PLAX 3.0 cm IVS Diastolic Thickness 0.9 cm 0.6 - 1.0 / 0.6 - 0.9 cm LVPW Diastolic Thickness 0.9 cm 0.6 - 1.0 / 0.6 - 0.9 cm LV Relative Wall Thickness 0.5 LVOT Diameter 2.0 cm M-MODE Aortic Root Diameter MM 3.2 cm LA Systolic Diameter MM 2.5 cm LA Ao Ratio MM 0.8 AV Cusp Separation MM 1.9 cm DOPPLER AV Peak Velocity 132.0 cm/s AV Peak Gradient 7.0 mmHg LVOT Peak Velocity 95.8 cm/s LVOT Peak Gradient 3.7 mmHg AV Area Cont Eq pk 2.3 cm Mitral E Point Velocity 104.0 cm/s Mitral A Point Velocity 117.0 cm/s Mitral E to A Ratio 0.9 LV E' Lateral Velocity 9.5 cm/s Mitral E to LV E' Lateral Ratio 11.0 LV E' Septal Velocity 5.1 cm/s Mitral E to LV E' Septal Ratio 20.5 PV Peak Velocity 105.0 cm/s PV Peak Gradient 4.4 mmHg FINDINGS LEFT VENTRICLE The left ventricular systolic function is normal with an estimated ejection fraction in the range of 55-60%. Wall thickness is normal. Normal left ventricular size. RIGHT VENTRICLE Normal right ventricular size and systolic function. LEFT ATRIUM The left atrial size is normal. RIGHT ATRIUM The right atrial size is normal. ATRIAL SEPTUM Normal atrial septal thickness. AORTA The aortic root and proximal ascending aorta are normal in size on limited imaging. MITRAL VALVE Structurally normal mitral valve. No mitral valve stenosis or regurgitation. AORTIC VALVE Trileaflet aortic valve. No aortic valve stenosis or regurgitation. TRICUSPID VALVE Structurally normal tricuspid valve. There is trace tricuspid valve regurgitation. No tricuspid valve stenosis. PULMONARY VALVE The pulmonary valve is not well visualized. VESSELS The inferior vena cava is normal in size. PERICARDIUM No pericardial effusion. Stephane Musa DO (Electronically Signed) Final Date:15 December 2017 14:01
== END 2017-12-15 15:37 | disposition home or self-care (01) | DRG 310 ==
LOC: NEPE 09:38 → NEDA 13:38 → N04A 18:41
PROVIDERS: ADMIT Internal Medicine; ATTEND Internal Medicine
DX: I48.91 Unspecified atrial fibrillation (principal); E11.9 Type 2 diabetes mellitus without complications; E78.5 Hyperlipidemia, unspecified; E87.6 Hypokalemia; N40.0 Benign prostatic hyperplasia without lower urinary tract symptoms; Z23 Encounter for immunization
CPT/HCPCS: 71045; 80048; 80053; 82550; 82552; 83735; 84443; 84484; 85025; 85610; 85730; 90732; 93005; 93306; J1650